=== PATIENT | female | born 1960 ===

== ENCOUNTER 2021-06-28 17:34 | Emergency (ER) | payer SELFPAY | END 2021-06-28 18:21 | disposition left against medical advice (07) | LOC: ER 17:35 | DX: S01.81XA Laceration without foreign body of other part of head, initial encounter (principal); Z53.21 Procedure and treatment not carried out due to patient leaving prior to being seen by health care provider; X58.XXXA Exposure to other specified factors, initial encounter; Y93.9 Activity, unspecified; Y92.9 Unspecified place or not applicable; Y99.9 Unspecified external cause status ==